=== PATIENT | male | born 1950 | race Caucasian/White ===

== ENCOUNTER 2023-12-11 05:15 | Emergency (ER) | payer MEDICARE ==
[2023-12-11] MEDS ORDERED: Oxymetazoline HCl 0.05% ( 15 ML ) ONE (05:51)
[2023-12-11] MEDS ORDERED: Bacitracin 1 PK ONE ×2 (06:19→07:16)
[2023-12-11 06:45] LABS: INR-International Normal Ratio 1.2; PTT 24.8 sec (22.0-33.0); Prothrombin Time 12.5 sec (9.5-12.1)
[2023-12-11 06:51] LABS: ALT (SGPT) 50 U/L (8-55); AST (SGOT) 35 U/L (5-34); Alkaline Phosphatase 159 U/L (40-110); Anion Gap 15 mmol/L (10-20); BUN (Urea Nitrogen) 39 mg/dL (8.4-25.7); Bilirubin, Total 0.4 mg/dL (0.2-1.2); Calc. Creatinine Clearance 0 mL/min (70-130); Calcium 8.5 mg/dL (7.8-10.44); Carbon Dioxide 22 mmol/L (23-31); Chloride 105 mmol/L (98-107); Estimated GFR 92; Globulin 3.3 g/dL (2.4-3.5); Glucose 136 mg/dL (83-110); Potassium 3.9 mmol/L (3.5-5.1); Protein, Total 6.3 g/dL (5.8-8.1); Sodium 138 mmol/L (136-145)
[2023-12-11 06:56] LABS: Hematocrit 24.8 % (38.8-50.0); Hemoglobin 8.5 g/dL (13.5-17.5); Mean Corpuscular HGB CONC 34.3 g/dL (32.0-36.0); Mean Corpuscular Volume 87.6 fL (81.2-95.1); Mean Platelet Volume 11.1 fL (7.4-10.4); Platelet Count 119 10x3/uL (150-450); RBC Distribution Width 13.5 % (11.5-14.5); Red Blood Cell (RBC) Count 2.83 10x6/uL (4.32-5.72)
[2023-12-11 06:57] LABS: MDiff Complete? YES
[2023-12-11 07:16] LABS: Band 10 % (5-11); Eosinophils 1 % (0-10); Lymphocytes 4 % (21-51); Neutrophil 85 % (42-75)
[2023-12-11] MEDS ORDERED: Tranexamic Acid 1,000 MG/10 ML VIAL ONE (07:16)
[2023-12-11 07:23] LABS: Anisocytosis SLIGHT = 6-15 cells (100X) (0-5/hpf); Macrocytosis SLIGHT = 6-15 cells (100X) (0-5/hpf); Microcytosis SLIGHT = 6-15 cells (100X) (0-5/hpf); Platelet Adequacy Comment Appears Decreased; Schistocytes SLIGHT = 2-5 cells (100X) (0-1/hpf)
[2023-12-11 07:24] LABS: Toxic Granulation SLIGHT
== END 2023-12-11 08:55 | disposition home or self-care (01) ==
LOC: CSHERS 05:15
DX: R04.0 Epistaxis (principal); D64.9 Anemia, unspecified; D69.6 Thrombocytopenia, unspecified; I10 Essential (primary) hypertension; F17.210 Nicotine dependence, cigarettes, uncomplicated
CPT/HCPCS: 30901; 36415; 80053; 85025; 85610; 85730; 99283

== ENCOUNTER 2024-01-23 16:48 | Emergency (ER) | payer MEDICARE ==
[2024-01-23 18:25] LABS: Hematocrit 32.2 % (38.8-50.0); Hemoglobin 11.2 g/dL (13.5-17.5); MDiff Complete? YES; Mean Corpuscular HGB CONC 34.8 g/dL (32.0-36.0); Mean Corpuscular Hemoglobin 31.2 pg (27.0-33.0); Mean Corpuscular Volume 89.7 fL (81.2-95.1); Mean Platelet Volume 9.8 fL (7.4-10.4); Platelet Count 155 10x3/uL (150-450); RBC Distribution Width 19.5 % (11.5-14.5); Red Blood Cell (RBC) Count 3.59 10x6/uL (4.32-5.72); White Blood Cell (WBC) Count 1.5 10x3/uL (3.5-10.5)
[2024-01-23 18:39] LABS: ALT (SGPT) 8 U/L (8-55); AST (SGOT) 11 U/L (5-34); Albumin 2.8 g/dL (3.4-4.8); Alkaline Phosphatase 75 U/L (40-110); Anion Gap 17 mmol/L (10-20); BUN (Urea Nitrogen) 43 mg/dL (8.4-25.7); Bilirubin, Total 0.4 mg/dL (0.2-1.2); CK (CPK) 17 U/L (30-200); Calc. Creatinine Clearance 0 mL/min (70-130); Calcium 7.9 mg/dL (7.8-10.44); Carbon Dioxide 17 mmol/L (23-31); Chloride 101 mmol/L (98-107); Estimated GFR 75; Globulin 2.8 g/dL (2.4-3.5); Glucose 157 mg/dL (83-110); Magnesium 1.7 mg/dL (1.6-2.6); Potassium 3.1 mmol/L (3.5-5.1); Protein, Total 5.6 g/dL (5.8-8.1); Sodium 132 mmol/L (136-145)
[2024-01-23 18:41] LABS: Troponin I 0.025 ng/mL (< 0.028)
[2024-01-23 19:08] LABS: Band 8 % (5-11); Lymphocytes 40 % (21-51); Monocytes 24 % (0-10); Neutrophil 26 % (42-75); Reactive Lymphocytes 2 % (0-10)
[2024-01-23 19:08] LABS: Bilirubin Neg (Negative); Blood, Urine 10 (Negative); Clarity Clear (Clear); Glucose, Urine (Dipstick) Normal (Negative); Ketone, Urine Negative (Negative); Leukocyte Negative (Negative); Nitrite Negative (Negative); Protein, Urine (Dipstick) 15 mg/dl (Neg-Trace); Urobilinogen Normal mg/dL (Less than 2)
[2024-01-23 19:15] LABS: Lipase Less than 4 U/L (8-78)
[2024-01-23 19:22] LABS: Platelet Adequacy Comment Appears Adequate
[2024-01-23 19:23] LABS: Anisocytosis SLIGHT = 6-15 cells (100X) (0-5/hpf); Large Platelets SLIGHT (None Seen); Ovalocytes SLIGHT = 2-5 cells (100X) (0-1/hpf); Polychromasia SLIGHT = 2-3 cells (100X) (0-2/hpf); Reflex for Review?? YES
[2024-01-23 19:24] LABS: CAUTI Indications for Culture Acute Hematuria; RBC/HPF 0-3 HPF (0-3); Squamous Epithelial 0-3 HPF (0-3); WBC/HPF 0-3 HPF (0-3)
[2024-01-23 19:25] LABS: Bacteria/HPF 1+ HPF (None Seen)
[2024-01-23 19:26] LABS: Mucous/LPF 1+ LPF (<2+)
[2024-01-23 19:27] LABS: Urine Culture Reflex No No
== END 2024-01-23 20:42 | disposition home or self-care (01) ==
LOC: CSHERS 16:48
DX: E86.0 Dehydration (principal); I10 Essential (primary) hypertension; Z87.891 Personal history of nicotine dependence; Z79.01 Long term (current) use of anticoagulants; Z79.899 Other long term (current) drug therapy
CPT/HCPCS: 71045; 81001; 82550; 83605; 83690; 83735; 84484; 85060; 93005; 96360; 96361

== ENCOUNTER 2024-07-11 09:02 | Outpatient (CLI) | payer MEDICARE, BC | END 2024-07-11 09:03 | disposition home or self-care (01) | LOC: CSHCT 09:02 | PROVIDERS: ATTEND Internal Medicine Hematology & Oncology | DX: C25.2 Malignant neoplasm of tail of pancreas (principal); C64.1 Malignant neoplasm of right kidney, except renal pelvis; C61 Malignant neoplasm of prostate; D72.828 Other elevated white blood cell count; D50.0 Iron deficiency anemia secondary to blood loss (chronic); C78.7 Secondary malignant neoplasm of liver and intrahepatic bile duct | CPT/HCPCS: 71260; 74177; 82565 ==